=== PATIENT | male | born 1960 | race Caucasian/White ===

== ENCOUNTER → 2017-11-19 | Outpatient (CLI) | payer OTHER ==
--- NOTE | 2017-11-19 18:33 | Diagnostic Imaging Report ---
PROCEDURE: Frontal and lateral views of the chest. COMPARISON: None. INDICATIONS: BRONCHITIS FINDINGS: Lines/tubes: None. Lungs: The lungs are mildly hyperinflated. Mild bilateral perihilar, peribronchial thickening. There is no evidence of pneumonia or pulmonary edema. Pleura: There is no pleural effusion or pneumothorax. Heart and mediastinum: The heart and the mediastinum are normal. Bones: No acute bony abnormality. IMPRESSION: 1. No acute thoracic abnormality. Mild hyperinflation and peribronchial thickening bilaterally may reflect reactive airway disease. Heidy Mauricio M.D. Dictated by: Heidy Mauricio M.D. on 11/19/2017 at 18:33 Electronically approved by: Heidy Mauricio M.D. on 11/19/2017 at 18:33
== END ==
LOC: RAD 17:54
PROVIDERS: ATTEND Family Medicine
DX: J40 Bronchitis, not specified as acute or chronic (principal)
CPT/HCPCS: 71046